=== PATIENT | male | born 1985 | race African-American/Black ===

== ENCOUNTER 2019-03-01 00:43 | Emergency (ER) | payer MEDICAID ==
[~2019-03-01] VITALS: Ht 172.7 cm; Wt 79.5 kg
[2019-03-01 00:46] VITALS: Ht 172.7 cm; Wt 79.5 kg
[2019-03-01] MEDS ORDERED: IBUPROFEN400 MG PO (00:48)
[2019-03-01 01:14] LABS: BASOPHILS 0.2 % (0-2); HEMATOCRIT 47.5 % (42.0-54.0); HEMOGLOBIN 16.2 g/dL (13.5-17.5); IMMATURE GRANULOCYTES 0.4 % (0-5); LYMPHOCYTES 12.6 % (15-50); MCH 30.4 pg (26.0-34.0); MCHC 34.1 g/dL (31.0-37.0); MCV 89.1 fL (80.0-100.0); MEAN PLATELET VOLUME 8.9 fL (7.4-10.4); MONOCYTES 8.9 % (2-11); NEUTROPHILS 76.9 % (40-80); PLATELET COUNT 259 10x3/uL (130-400); RBC 5.33 10x6/uL (4.20-6.10); RDW 12.8 % (11.5-14.5); WBC 12.5 10x3/uL (4.8-10.8)
[2019-03-01 01:18] LABS: APPEARANCE CLEAR (CLEAR); COLOR YELLOW (YELLOW)
[2019-03-01 01:19] LABS: BILIRUBIN NEGATIVE (NEGATIVE); GLUCOSE NEGATIVE (NEGATIVE); KETONE NEGATIVE (NEGATIVE); NITRITE NEGATIVE (NEGATIVE); PROTEIN NEGATIVE (NEGATIVE); SPECIFIC GRAVITY 1.005 (1.005-1.020); UROBILINOGEN NORMAL (NORMAL)
[2019-03-01 01:23] LABS: ANION GAP 6.4 mmol/L (8-16); CARBON DIOXIDE 34.6 mmol/L (21.0-32.0); CREATININE - SERUM 1.4 mg/dL (0.6-1.3)
[2019-03-01 01:27] LABS: ALBUMIN 3.8 g/dL (3.4-5.0); BILIRUBIN - TOTAL 0.49 mg/dL (0.2-1.3); PROTEIN - SERUM 7.7 g/dL (6.4-8.2)
[2019-03-01] MEDS ORDERED: PROTONIX20 MG PO (04:08)
[2019-03-01 04:35] VITALS: BP 126/91
== END 2019-03-01 04:36 | disposition home or self-care (01) ==
LOC: D.ER 00:43
PROVIDERS: Family Medicine
DX: K21.9 Gastro-esophageal reflux disease without esophagitis (principal); K51.90 Ulcerative colitis, unspecified, without complications; Z72.0 Tobacco use